=== PATIENT | female | born 1940 | race Caucasian/White ===

== ENCOUNTER 2023-04-03 11:44 | Inpatient (IN) | payer MEDICARE, MEDICAID ==
[2023-04-03 12:50] LABS: #Eosinphils 0.1 10x3/uL (0.0-0.5); #Monocytes 0.6 10x3/uL (0.0-1.1); #Neutrophils 6.2 10x3/uL (1.5-8.4); %Basophils 0.4 % (0.0-2.0); %Eosinophils 1.1 % (0.0-6.0); %Lymphocytes 14.5 % (18.0-47.0); %Monocytes 7.7 % (0.0-10.0); %Neutrophils 75.9 % (40.0-75.0); Hematocrit 27.1 % (34.9-44.5); Hemoglobin 7.9 g/dL (12.0-15.5); Mean Corpuscular HGB CONC 29.2 g/dL (32.0-36.0); Mean Corpuscular Hemoglobin 24.4 pg (27.0-33.0); Mean Corpuscular Volume 83.6 fl (81.6-98.3); Mean Platelet Volume 10.1 fl (7.4-10.4); Platelet Count 324 10x3/uL (150-450); RBC Distribution Width 15.8 % (11.5-14.5); Red Blood Cell (RBC) Count 3.24 10x6/uL (3.90-5.03); White Blood Cell (WBC) Count 8.1 10x3/uL (3.5-10.5)
[2023-04-03 13:03] LABS: ALT (SGPT) 12 U/L (8-55); AST (SGOT) 19 U/L (5-34); Albumin 3.9 g/dL (3.4-4.8); Alkaline Phosphatase 47 U/L (40-110); Anion Gap 17 mmol/L (10-20); BUN (Urea Nitrogen) 44 mg/dL (9.8-20.1); Bilirubin, Total 0.3 mg/dL (0.2-1.2); Calc. Creatinine Clearance 0 mL/min (70-130); Calcium 9.3 mg/dL (7.8-10.44); Carbon Dioxide 21 mmol/L (23-31); Chloride 107 mmol/L (98-107); Estimated GFR 28; Globulin 3.3 g/dL (2.4-3.5); Glucose 119 mg/dL (83-110); Potassium 4.7 mmol/L (3.5-5.1); Protein, Total 7.2 g/dL (5.8-8.1); Sodium 140 mmol/L (136-145)
[2023-04-03 13:58] LABS: INR-International Normal Ratio 0.9; PTT 23.9 sec (22.0-33.0); Troponin I Less than 0.010 ng/mL (< 0.028)
[2023-04-03 14:19] LABS: Bilirubin Neg (Negative); Blood, Urine Negative (Negative); Clarity Clear (Clear); Glucose, Urine (Dipstick) Normal (Negative); Ketone, Urine Negative (Negative); Leukocyte 500 (Negative); Nitrite Positive (Negative); Protein, Urine (Dipstick) Negative (Neg-Trace); Specific Gravity, Urine 1.015 (1.005-1.030); Urobilinogen Normal mg/dL (Less than 2)
[2023-04-03 14:40] LABS: Bacteria/HPF 4+ HPF (None Seen); CAUTI Indications for Culture Alt mental st,lethar; Mucous/LPF Rare LPF (<2+); RBC/HPF None Seen HPF (0-3); Squamous Epithelial 0-3 HPF (0-3); Urine Culture Reflex No No
[2023-04-03] MEDS ORDERED: Ondansetron ODT 4 MG TAB PO PRN (15:49)
[2023-04-03] MEDS ORDERED: Glucagon 1 MG/ML KIT IM PRN (15:49)
[2023-04-03] MEDS ORDERED: Dextrose 5% in Water 1,000 ML IV PRN (15:49)
[2023-04-03] MEDS ORDERED: Acetaminophen 650 MG Suppository PR PRN (15:49)
[2023-04-03] MEDS ORDERED: HumaLOG 300 UNITS/3 ML VIAL SC PRN ×2 (15:49)
[2023-04-03] MEDS ORDERED: Dextrose 50% Abboject 50 ML SYRINGE SLOW IVP PRN (15:49)
[2023-04-03] MEDS ORDERED: Ondansetron PF 4 MG/2 ML Vial IVP PRN (15:49)
[2023-04-03] MEDS ORDERED: cefTRIAXone (ROCEPHIN) 1 GM VIAL ONE (15:51)
[2023-04-03] MEDS ORDERED: Sodium Chloride 0.9% 500 ML IV SCH (16:00)
[2023-04-03] MEDS ORDERED: Ventolin HFA Inhaler 60 PUFF INHALER INH PRN (16:31)
[2023-04-03 16:33] LABS: Iron 28 ug/dL (50-170); Iron Binding Capacity, Total 439 mcg/dL (265-497); Magnesium 2.3 mg/dL (1.6-2.6)
[2023-04-03] MEDS: Pantoprazole 40 MG VIAL IVP SCH (21:00)
[2023-04-03 21:27] LABS: Hematocrit 28.3 % (34.9-44.5); Hemoglobin 8.6 g/dL (12.0-15.5)
[2023-04-03] MEDS ORDERED: FLU VACC QS2023(65UP)/MF59C/PF 60 MCG/0.5 ML SYRINGE IM ONE (22:45)
[2023-04-04 01:39] LABS: Bilirubin Neg (Negative); Blood, Urine Negative (Negative); Clarity Clear (Clear); Glucose, Urine (Dipstick) Normal (Negative); Ketone, Urine Negative (Negative); Leukocyte 500 (Negative); Nitrite Negative (Negative); Protein, Urine (Dipstick) Negative (Neg-Trace); Specific Gravity, Urine 1.015 (1.005-1.030); Urobilinogen Normal mg/dL (Less than 2)
[2023-04-04 01:48] LABS: Bacteria/HPF 1+ HPF (None Seen); CAUTI Indications for Culture Alt mental st,lethar; RBC/HPF None Seen HPF (0-3); Squamous Epithelial 0-3 HPF (0-3)
[2023-04-04 01:49] LABS: Urine Culture Reflex No No
[2023-04-04 08:00] LABS: #Eosinphils 0.2 10x3/uL (0.0-0.5); #Monocytes 0.5 10x3/uL (0.0-1.1); #Neutrophils 2.7 10x3/uL (1.5-8.4); %Basophils 0.6 % (0.0-2.0); %Eosinophils 3.1 % (0.0-6.0); %Lymphocytes 33.1 % (18.0-47.0); %Monocytes 9.7 % (0.0-10.0); %Neutrophils 53.1 % (40.0-75.0); Hematocrit 27.6 % (34.9-44.5); Hemoglobin 8.3 g/dL (12.0-15.5); Mean Corpuscular HGB CONC 30.1 g/dL (32.0-36.0); Mean Corpuscular Hemoglobin 25.2 pg (27.0-33.0); Mean Corpuscular Volume 83.9 fl (81.6-98.3); Platelet Count 261 10x3/uL (150-450); RBC Distribution Width 15.7 % (11.5-14.5); Red Blood Cell (RBC) Count 3.29 10x6/uL (3.90-5.03); White Blood Cell (WBC) Count 5.1 10x3/uL (3.5-10.5)
[2023-04-04 08:41] LABS: ALT (SGPT) 11 U/L (8-55); AST (SGOT) 20 U/L (5-34); Albumin 3.6 g/dL (3.4-4.8); Alkaline Phosphatase 47 U/L (40-110); Anion Gap 14 mmol/L (10-20); BUN (Urea Nitrogen) 40 mg/dL (9.8-20.1); Bilirubin, Total 0.4 mg/dL (0.2-1.2); Calc. Creatinine Clearance 47 mL/min (70-130); Carbon Dioxide 22 mmol/L (23-31); Chloride 110 mmol/L (98-107); Estimated GFR 33; Globulin 2.9 g/dL (2.4-3.5); Glucose 85 mg/dL (83-110); Potassium 4.4 mmol/L (3.5-5.1); Protein, Total 6.5 g/dL (5.8-8.1); Sodium 142 mmol/L (136-145)
[2023-04-04] MEDS ORDERED: FLU VACC QS2023(65UP)/MF59C/PF 60 MCG/0.5 ML SYRINGE IM ONE (09:00)
[2023-04-04] MEDS: Pantoprazole 40 MG VIAL IVP SCH ×2 (09:09→21:09)
[2023-04-04] MEDS: Iron, Sodium Ferric Gluconate 250 MG, Admixture Fee 1 EACH in Sodium Chloride 0.9% 250 ... IVPB SCH (14:22)
[2023-04-04] MEDS ORDERED: cefTRIAXone\\ROCEPHIN 1 GM in Sodium Chloride 0.9% 100 ML IVPB SCH ×2 (16:30→21:00)
[2023-04-04] MEDS: Lactated Ringer's 1,000 ML IV SCH (21:02)
[2023-04-04] MEDS: Sertraline 100 MG TAB PO SCH (21:12)
[2023-04-05] MEDS: Lactated Ringer's 1,000 ML IV SCH (00:20)
[2023-04-05] MEDS: Acetaminophen 325 MG TAB PO PRN ×3 (03:10→22:09)
[2023-04-05] MEDS: Levothyroxine Sodium 125 MCG TAB PO SCH (05:32)
[2023-04-05 06:34] LABS: #Eosinphils 0.2 10x3/uL (0.0-0.5); #Monocytes 0.7 10x3/uL (0.0-1.1); #Neutrophils 3.6 10x3/uL (1.5-8.4); %Basophils 0.5 % (0.0-2.0); %Eosinophils 3.3 % (0.0-6.0); %Monocytes 11.4 % (0.0-10.0); %Neutrophils 63.5 % (40.0-75.0); Hematocrit 25.5 % (34.9-44.5); Hemoglobin 7.8 g/dL (12.0-15.5); Mean Corpuscular HGB CONC 30.6 g/dL (32.0-36.0); Mean Corpuscular Hemoglobin 25.5 pg (27.0-33.0); Mean Corpuscular Volume 83.3 fl (81.6-98.3); Mean Platelet Volume 10.1 fl (7.4-10.4); Platelet Count 249 10x3/uL (150-450); RBC Distribution Width 15.9 % (11.5-14.5); Red Blood Cell (RBC) Count 3.06 10x6/uL (3.90-5.03); White Blood Cell (WBC) Count 5.7 10x3/uL (3.5-10.5)
[2023-04-05 06:37] LABS: Anion Gap 13 mmol/L (10-20); BUN (Urea Nitrogen) 34 mg/dL (9.8-20.1); Calc. Creatinine Clearance 52 mL/min (70-130); Calcium 8.7 mg/dL (7.8-10.44); Carbon Dioxide 23 mmol/L (23-31); Chloride 109 mmol/L (98-107); Estimated GFR 37; Glucose 101 mg/dL (83-110); Magnesium 2.3 mg/dL (1.6-2.6); Potassium 4.2 mmol/L (3.5-5.1); Sodium 141 mmol/L (136-145)
[2023-04-05] MEDS ORDERED: ROSUVASTATIN 5 MG PO SCH (09:00)
[2023-04-05] MEDS: Donepezil HCl 5 MG TAB PO SCH (10:04)
[2023-04-05] MEDS: Pantoprazole 40 MG VIAL IVP SCH ×2 (10:04→22:14)
[2023-04-05 13:53] LABS: Hemoglobin A1c 5.1 % (4.0-6.0)
[2023-04-05 14:07] LABS: Hematocrit 26.8 % (34.9-44.5); Hemoglobin 8.1 g/dL (12.0-15.5)
[2023-04-05] MEDS: Iron, Sodium Ferric Gluconate 250 MG, Admixture Fee 1 EACH in Sodium Chloride 0.9% 250 ... IVPB SCH (15:08)
[2023-04-05] MEDS: Cefdinir 300 MG CAP PO SCH (22:10)
[2023-04-05] MEDS: Sertraline 100 MG TAB PO SCH (22:10)
[2023-04-05] MEDS: Folic Acid 1 MG TAB PO SCH (22:11)
[2023-04-05] MEDS: Sacubitril 24MG/Valsartan 26 MG TAB PO SCH (22:12)
[2023-04-06 05:51] LABS: Anion Gap 12 mmol/L (10-20); BUN (Urea Nitrogen) 26 mg/dL (9.8-20.1); Calc. Creatinine Clearance 56 mL/min (70-130); Calcium 8.7 mg/dL (7.8-10.44); Carbon Dioxide 23 mmol/L (23-31); Chloride 110 mmol/L (98-107); Estimated GFR 40; Glucose 106 mg/dL (83-110); Potassium 3.8 mmol/L (3.5-5.1); Sodium 141 mmol/L (136-145)
[2023-04-06 06:00] LABS: #Eosinphils 0.2 10x3/uL (0.0-0.5); #Monocytes 0.8 10x3/uL (0.0-1.1); #Neutrophils 3.9 10x3/uL (1.5-8.4); %Basophils 0.5 % (0.0-2.0); %Eosinophils 3.1 % (0.0-6.0); %Lymphocytes 19.5 % (18.0-47.0); %Monocytes 13.5 % (0.0-10.0); %Neutrophils 63.1 % (40.0-75.0); Hematocrit 26.1 % (34.9-44.5); Hemoglobin 7.8 g/dL (12.0-15.5); Mean Corpuscular HGB CONC 29.9 g/dL (32.0-36.0); Mean Corpuscular Volume 83.7 fl (81.6-98.3); Mean Platelet Volume 9.3 fl (7.4-10.4); Platelet Count 234 10x3/uL (150-450); RBC Distribution Width 16.3 % (11.5-14.5); Red Blood Cell (RBC) Count 3.12 10x6/uL (3.90-5.03); White Blood Cell (WBC) Count 6.1 10x3/uL (3.5-10.5)
[2023-04-06] MEDS: Levothyroxine Sodium 125 MCG TAB PO SCH (06:54)
[2023-04-06] MEDS: Cyanocobalamin (Vitamin B-12) 1,000 MCG TAB PO SCH (08:57)
[2023-04-06] MEDS: Cefdinir 300 MG CAP PO SCH ×2 (08:57→21:37)
[2023-04-06] MEDS: Donepezil HCl 5 MG TAB PO SCH (08:57)
[2023-04-06] MEDS: Sacubitril 24MG/Valsartan 26 MG TAB PO SCH ×2 (08:58→21:37)
[2023-04-06] MEDS: Pantoprazole 40 MG VIAL IVP SCH ×2 (09:00→21:35)
[2023-04-06] MEDS: Acetaminophen 325 MG TAB PO PRN ×2 (09:57→20:10)
[2023-04-06] MEDS: Iron, Sodium Ferric Gluconate 250 MG, Admixture Fee 1 EACH in Sodium Chloride 0.9% 250 ... IVPB SCH (14:20)
[2023-04-06] MEDS ORDERED: GoLYTELY 4,000 ml Bottle PO SCH (18:00)
[2023-04-06] MEDS: Sertraline 100 MG TAB PO SCH (21:37)
[2023-04-06] MEDS: Folic Acid 1 MG TAB PO SCH (21:37)
[2023-04-07 05:42] LABS: #Monocytes 1.2 10x3/uL (0.0-1.1); #Neutrophils 7.1 10x3/uL (1.5-8.4); %Basophils 0.2 % (0.0-2.0); %Eosinophils 0.1 % (0.0-6.0); %Lymphocytes 11.6 % (18.0-47.0); %Monocytes 12.6 % (0.0-10.0); %Neutrophils 75.1 % (40.0-75.0); Hematocrit 25.7 % (34.9-44.5); Hemoglobin 7.7 g/dL (12.0-15.5); Mean Corpuscular Hemoglobin 25.3 pg (27.0-33.0); Mean Corpuscular Volume 84.5 fl (81.6-98.3); Mean Platelet Volume 9.5 fl (7.4-10.4); Platelet Count 237 10x3/uL (150-450); Red Blood Cell (RBC) Count 3.04 10x6/uL (3.90-5.03); White Blood Cell (WBC) Count 9.5 10x3/uL (3.5-10.5)
[2023-04-07 05:47] LABS: Anion Gap 15 mmol/L (10-20); BUN (Urea Nitrogen) 18 mg/dL (9.8-20.1); Calc. Creatinine Clearance 62 mL/min (70-130); Calcium 8.7 mg/dL (7.8-10.44); Carbon Dioxide 22 mmol/L (23-31); Chloride 108 mmol/L (98-107); Estimated GFR 44; Glucose 140 mg/dL (83-110); Potassium 4.3 mmol/L (3.5-5.1); Sodium 141 mmol/L (136-145)
[2023-04-07] MEDS: Levothyroxine Sodium 125 MCG TAB PO SCH (06:11)
[2023-04-07] MEDS: Colchicine 0.6 MG TAB PO SCH (10:01)
[2023-04-07] MEDS: Cyanocobalamin (Vitamin B-12) 1,000 MCG TAB PO SCH (10:02)
[2023-04-07] MEDS: Torsemide 20 MG TAB PO SCH (10:02)
[2023-04-07] MEDS: Cefdinir 300 MG CAP PO SCH (10:02)
[2023-04-07] MEDS: Donepezil HCl 5 MG TAB PO SCH (10:02)
[2023-04-07] MEDS: Pantoprazole 40 MG VIAL IVP SCH (10:03)
[2023-04-07] MEDS: Sacubitril 24MG/Valsartan 26 MG TAB PO SCH ×2 (10:03→21:26)
[2023-04-07] MEDS ORDERED: CeleCOXIB 100 MG CAP PO SCH (11:00)
[2023-04-07] MEDS ORDERED: cefTRIAXone\\ROCEPHIN 2 GM in Sodium Chloride 0.9% 100 ML IVPB SCH (11:00)
[2023-04-07] MEDS ORDERED: Nitroglycerin 0.4 MG TAB (25 Tab Bottle) SL PRN (11:02)
[2023-04-07] MEDS: Acetaminophen 325 MG TAB PO PRN ×2 (11:08→23:20)
[2023-04-07] MEDS ORDERED: Vancomycin 1 GM in Premix 1 BAG IVPB SCH (11:15)
[2023-04-07] MEDS: LevoFLOXacin 500 mg/D5W 500 MG in Premix 1 BAG IVPB SCH (11:20)
[2023-04-07] MEDS ORDERED: VANCOMYCIN 1.75 GM/350 ML BAG 1.75 GM in Premix 1 BAG IVPB SCH (11:30)
[2023-04-07] MEDS ORDERED: Colchicine 0.6 MG TAB PO SCH ×2 (11:30→12:30)
[2023-04-07 11:33] LABS: Troponin I Less than 0.010 ng/mL (< 0.028)
[2023-04-07] MEDS ORDERED: Torsemide 20 MG TAB PO SCH (14:00)
[2023-04-07] MEDS ORDERED: Lidocaine 1% PF 5 ML VIAL ONE (14:35)
[2023-04-07] MEDS ORDERED: PROPOFOL 40 ML ONE (14:35)
[2023-04-07] MEDS ORDERED: PHENYLEPHRINE-NS 100 MCG/ML 10 ML SYRINGE ONE (14:41)
[2023-04-07] MEDS: Potassium Chloride 20 MEQ TAB PO SCH (16:16)
[2023-04-07] MEDS: metFORMIN 500 MG TAB PO SCH (18:24)
[2023-04-07] MEDS: Iron, Sodium Ferric Gluconate 250 MG, Admixture Fee 1 EACH in Sodium Chloride 0.9% 250 ... IVPB SCH ×2 (18:49→21:26)
[2023-04-07] MEDS: Sertraline 100 MG TAB PO SCH (21:25)
[2023-04-07] MEDS: Folic Acid 1 MG TAB PO SCH (21:26)
[2023-04-07 22:25] LABS: Bilirubin Neg (Negative); Blood, Urine Negative (Negative); Clarity Clear (Clear); Glucose, Urine (Dipstick) Normal (Negative); Ketone, Urine Negative (Negative); Leukocyte Negative (Negative); Nitrite Negative (Negative); Protein, Urine (Dipstick) Negative (Neg-Trace); Specific Gravity, Urine 1.015 (1.005-1.030); Urobilinogen Normal mg/dL (Less than 2)
[2023-04-07 22:42] LABS: Bacteria/HPF None Seen HPF (None Seen); RBC/HPF None Seen HPF (0-3); Squamous Epithelial 0-3 HPF (0-3); WBC/HPF 0-3 HPF (0-3)
[2023-04-08] MEDS: Acetaminophen 325 MG TAB PO PRN (03:50)
[2023-04-08 03:53] LABS: #Eosinphils 0.1 10x3/uL (0.0-0.5); #Monocytes 0.7 10x3/uL (0.0-1.1); #Neutrophils 6.4 10x3/uL (1.5-8.4); %Basophils 0.1 % (0.0-2.0); %Eosinophils 0.9 % (0.0-6.0); %Lymphocytes 11.6 % (18.0-47.0); %Monocytes 8.4 % (0.0-10.0); %Neutrophils 78.6 % (40.0-75.0); Hematocrit 23.4 % (34.9-44.5); Hemoglobin 7.2 g/dL (12.0-15.5); Mean Corpuscular HGB CONC 30.8 g/dL (32.0-36.0); Mean Corpuscular Hemoglobin 25.8 pg (27.0-33.0); Mean Corpuscular Volume 83.9 fl (81.6-98.3); Mean Platelet Volume 10.2 fl (7.4-10.4); Platelet Count 219 10x3/uL (150-450); RBC Distribution Width 17.4 % (11.5-14.5); Red Blood Cell (RBC) Count 2.79 10x6/uL (3.90-5.03); White Blood Cell (WBC) Count 8.1 10x3/uL (3.5-10.5)
[2023-04-08 04:03] LABS: Anion Gap 13 mmol/L (10-20); BUN (Urea Nitrogen) 20 mg/dL (9.8-20.1); Calc. Creatinine Clearance 61 mL/min (70-130); Calcium 8.4 mg/dL (7.8-10.44); Carbon Dioxide 20 mmol/L (23-31); Chloride 108 mmol/L (98-107); Estimated GFR 43; Glucose 147 mg/dL (83-110); Potassium 3.6 mmol/L (3.5-5.1); Sodium 137 mmol/L (136-145)
[2023-04-08] MEDS: Levothyroxine Sodium 125 MCG TAB PO SCH (05:56)
[2023-04-08] MEDS ORDERED: Iron, Sodium Ferric Gluconate 250 MG in Sodium Chloride 0.9% 250 ML 250 ML IVPB SCH (08:00)
[2023-04-08] MEDS: Cyanocobalamin (Vitamin B-12) 1,000 MCG TAB PO SCH (08:11)
[2023-04-08] MEDS: metFORMIN 500 MG TAB PO SCH ×2 (08:11→16:14)
[2023-04-08] MEDS: Torsemide 20 MG TAB PO SCH (08:11)
[2023-04-08] MEDS: Sacubitril 24MG/Valsartan 26 MG TAB PO SCH ×2 (08:11→21:45)
[2023-04-08] MEDS: Colchicine 0.6 MG TAB PO SCH (08:11)
[2023-04-08] MEDS: Multivit, Therapeutic 1 TAB PO SCH (08:12)
[2023-04-08] MEDS: Aspirin 81 mg Enteric Coated Tablet PO SCH (08:22)
[2023-04-08] MEDS ORDERED: Prasugrel 10 MG TAB PO SCH ×2 (09:00)
[2023-04-08] MEDS ORDERED: Aspirin 81 mg Enteric Coated Tablet PO SCH (09:00)
[2023-04-08] MEDS: LevoFLOXacin 500 mg/D5W 500 MG in Premix 1 BAG IVPB SCH (12:27)
[2023-04-08 13:35] LABS: Hematocrit 28.3 % (34.9-44.5); Hemoglobin 8.3 g/dL (12.0-15.5); Platelet Count 249 10x3/uL (150-450)
[2023-04-08] MEDS: Potassium Chloride 20 MEQ TAB PO SCH (14:00)
[2023-04-08] MEDS ORDERED: VANCOMYCIN 1.25 GM/250 ML BAG 1.25 GM in Premix 1 BAG IVPB SCH (16:00)
[2023-04-08] MEDS: Sertraline 100 MG TAB PO SCH (21:43)
[2023-04-08] MEDS: Folic Acid 1 MG TAB PO SCH (21:45)
[2023-04-09 03:39] LABS: #Eosinphils 0.2 10x3/uL (0.0-0.5); #Monocytes 0.7 10x3/uL (0.0-1.1); #Neutrophils 4.2 10x3/uL (1.5-8.4); %Basophils 0.3 % (0.0-2.0); %Eosinophils 2.7 % (0.0-6.0); %Lymphocytes 17.9 % (18.0-47.0); %Monocytes 10.5 % (0.0-10.0); %Neutrophils 68.3 % (40.0-75.0); Hematocrit 24.2 % (34.9-44.5); Hemoglobin 7.3 g/dL (12.0-15.5); Mean Corpuscular HGB CONC 30.2 g/dL (32.0-36.0); Mean Corpuscular Hemoglobin 25.1 pg (27.0-33.0); Mean Corpuscular Volume 83.2 fl (81.6-98.3); Mean Platelet Volume 9.9 fl (7.4-10.4); Platelet Count 235 10x3/uL (150-450); RBC Distribution Width 17.6 % (11.5-14.5); Red Blood Cell (RBC) Count 2.91 10x6/uL (3.90-5.03); White Blood Cell (WBC) Count 6.2 10x3/uL (3.5-10.5)
[2023-04-09 04:11] LABS: Anion Gap 13 mmol/L (10-20); BUN (Urea Nitrogen) 21 mg/dL (9.8-20.1); Calc. Creatinine Clearance 60 mL/min (70-130); Calcium 8.6 mg/dL (7.8-10.44); Carbon Dioxide 20 mmol/L (23-31); Chloride 110 mmol/L (98-107); Estimated GFR 43; Glucose 115 mg/dL (83-110); Sodium 139 mmol/L (136-145)
[2023-04-09] MEDS: Levothyroxine Sodium 125 MCG TAB PO SCH (05:36)
[2023-04-09] MEDS ORDERED: Artificial Tear Sol 15 ML BOT EA EYE PRN (08:39)
[2023-04-09] MEDS: LevoFLOXacin 500 mg/D5W 500 MG in Premix 1 BAG IVPB SCH (11:58)
[2023-04-09] MEDS: Acetaminophen 325 MG TAB PO PRN (12:11)
[2023-04-09] MEDS: Prasugrel 10 MG TAB PO SCH (12:11)
[2023-04-09] MEDS: Cyanocobalamin (Vitamin B-12) 1,000 MCG TAB PO SCH (12:12)
[2023-04-09] MEDS: Sacubitril 24MG/Valsartan 26 MG TAB PO SCH ×2 (12:12→21:39)
[2023-04-09] MEDS: metFORMIN 500 MG TAB PO SCH ×2 (12:12→17:38)
[2023-04-09] MEDS: Colchicine 0.6 MG TAB PO SCH (12:13)
[2023-04-09] MEDS: Multivit, Therapeutic 1 TAB PO SCH (12:13)
[2023-04-09] MEDS: Aspirin 81 mg Enteric Coated Tablet PO SCH (12:13)
[2023-04-09] MEDS: Potassium Chloride 20 MEQ TAB PO SCH (12:14)
[2023-04-09] MEDS: Torsemide 20 MG TAB PO SCH (12:22)
[2023-04-09] MEDS: Folic Acid 1 MG TAB PO SCH (21:39)
[2023-04-09] MEDS: Sertraline 100 MG TAB PO SCH (21:39)
[2023-04-10 04:17] LABS: Hematocrit 29.8 % (34.9-44.5); Hemoglobin 9.3 g/dL (12.0-15.5)
[2023-04-10] MEDS: Levothyroxine Sodium 125 MCG TAB PO SCH (05:46)
[2023-04-10] MEDS: Colchicine 0.6 MG TAB PO SCH (08:21)
[2023-04-10] MEDS: Prasugrel 10 MG TAB PO SCH (08:21)
[2023-04-10] MEDS: Cyanocobalamin (Vitamin B-12) 1,000 MCG TAB PO SCH (08:22)
[2023-04-10] MEDS: Sacubitril 24MG/Valsartan 26 MG TAB PO SCH ×2 (08:22→21:14)
[2023-04-10] MEDS: Multivit, Therapeutic 1 TAB PO SCH (08:22)
[2023-04-10] MEDS: Torsemide 20 MG TAB PO SCH ×2 (08:22→13:16)
[2023-04-10] MEDS: Aspirin 81 mg Enteric Coated Tablet PO SCH (08:22)
[2023-04-10] MEDS: metFORMIN 500 MG TAB PO SCH ×2 (08:22→16:31)
[2023-04-10] MEDS: LevoFLOXacin 500 mg/D5W 500 MG in Premix 1 BAG IVPB SCH (10:33)
[2023-04-10] MEDS: Potassium Chloride 20 MEQ TAB PO SCH (13:16)
[2023-04-10] MEDS: Folic Acid 1 MG TAB PO SCH (21:12)
[2023-04-10] MEDS: Sertraline 100 MG TAB PO SCH (21:13)
[2023-04-11] MEDS: Levothyroxine Sodium 125 MCG TAB PO SCH (07:10)
[2023-04-11] MEDS: Sacubitril 24MG/Valsartan 26 MG TAB PO SCH ×2 (08:39→20:47)
[2023-04-11] MEDS: Prasugrel 10 MG TAB PO SCH (08:39)
[2023-04-11] MEDS: metFORMIN 500 MG TAB PO SCH ×2 (08:39→17:00)
[2023-04-11] MEDS: Cyanocobalamin (Vitamin B-12) 1,000 MCG TAB PO SCH (08:39)
[2023-04-11] MEDS: Colchicine 0.6 MG TAB PO SCH (08:39)
[2023-04-11] MEDS: Torsemide 20 MG TAB PO SCH (08:39)
[2023-04-11] MEDS: Aspirin 81 mg Enteric Coated Tablet PO SCH (08:39)
[2023-04-11] MEDS: Multivit, Therapeutic 1 TAB PO SCH (08:40)
[2023-04-11] MEDS ORDERED: hydrALAZINE 25 MG TAB PO PRN (09:38)
[2023-04-11] MEDS: Potassium Chloride 20 MEQ TAB PO SCH (13:43)
[2023-04-11] MEDS: Sertraline 100 MG TAB PO SCH (20:47)
[2023-04-11] MEDS: Saccharomyces boulardii 250 MG CAP PO SCH (20:47)
[2023-04-11] MEDS: Folic Acid 1 MG TAB PO SCH (20:47)
[2023-04-11] MEDS: Nystatin Powder 15 GM BOT TOP SCH (22:39)
[2023-04-12 04:34] LABS: Anion Gap 16 mmol/L (10-20); BUN (Urea Nitrogen) 39 mg/dL (9.8-20.1); Calc. Creatinine Clearance 48 mL/min (70-130); Calcium 9.2 mg/dL (7.8-10.44); Carbon Dioxide 20 mmol/L (23-31); Chloride 103 mmol/L (98-107); Estimated GFR 32; Glucose 111 mg/dL (83-110); Sodium 135 mmol/L (136-145)
[2023-04-12 04:42] LABS: Hematocrit 32.2 % (34.9-44.5); Hemoglobin 9.7 g/dL (12.0-15.5); Mean Corpuscular HGB CONC 30.1 g/dL (32.0-36.0); Mean Corpuscular Hemoglobin 25.1 pg (27.0-33.0); Mean Corpuscular Volume 83.2 fl (81.6-98.3); Mean Platelet Volume 9.1 fl (7.4-10.4); Platelet Count 285 10x3/uL (150-450); RBC Distribution Width 17.7 % (11.5-14.5); Red Blood Cell (RBC) Count 3.87 10x6/uL (3.90-5.03); White Blood Cell (WBC) Count 5.8 10x3/uL (3.5-10.5)
[2023-04-12 05:24] LABS: MDiff Complete? YES
[2023-04-12] MEDS: Levothyroxine Sodium 125 MCG TAB PO SCH (05:46)
[2023-04-12 05:58] LABS: Eosinophils 3 % (0-10); Lymphocytes 24 % (21-51); Monocytes 5 % (0-10); Neutrophil 68 % (42-75)
[2023-04-12 06:01] LABS: Hypochromia SLIGHT = 6-15 cells (100X) (0-5/hpf); Microcytosis SLIGHT = 6-15 cells (100X) (0-5/hpf); Ovalocytes SLIGHT = 2-5 cells (100X) (0-1/hpf); Platelet Adequacy Comment Appears Adequate
[2023-04-12] MEDS: Cyanocobalamin (Vitamin B-12) 1,000 MCG TAB PO SCH (09:27)
[2023-04-12] MEDS: Colchicine 0.6 MG TAB PO SCH (09:29)
[2023-04-12] MEDS: Sacubitril 24MG/Valsartan 26 MG TAB PO SCH ×2 (09:29→21:37)
[2023-04-12] MEDS: metFORMIN 500 MG TAB PO SCH ×2 (09:29→17:51)
[2023-04-12] MEDS: Aspirin 81 mg Enteric Coated Tablet PO SCH (09:30)
[2023-04-12] MEDS: Multivit, Therapeutic 1 TAB PO SCH (09:30)
[2023-04-12] MEDS: Torsemide 20 MG TAB PO SCH (09:31)
[2023-04-12] MEDS: Nystatin Powder 15 GM BOT TOP SCH ×2 (09:32→21:38)
[2023-04-12] MEDS: Prasugrel 10 MG TAB PO SCH (09:33)
[2023-04-12] MEDS: Potassium Chloride 20 MEQ TAB PO SCH (13:58)
[2023-04-12] MEDS: Sertraline 100 MG TAB PO SCH (21:37)
[2023-04-12] MEDS: Folic Acid 1 MG TAB PO SCH (21:38)
[2023-04-12] MEDS: Saccharomyces boulardii 250 MG CAP PO SCH (21:38)
[2023-04-13] MEDS: Levothyroxine Sodium 125 MCG TAB PO SCH (05:36)
[2023-04-13] MEDS: Colchicine 0.6 MG TAB PO SCH (09:42)
[2023-04-13] MEDS: metFORMIN 500 MG TAB PO SCH ×2 (09:43→17:12)
[2023-04-13] MEDS: Sacubitril 24MG/Valsartan 26 MG TAB PO SCH ×2 (09:43→20:43)
[2023-04-13] MEDS: Multivit, Therapeutic 1 TAB PO SCH (09:43)
[2023-04-13] MEDS: Prasugrel 10 MG TAB PO SCH (09:43)
[2023-04-13] MEDS: Cyanocobalamin (Vitamin B-12) 1,000 MCG TAB PO SCH (09:43)
[2023-04-13] MEDS: Aspirin 81 mg Enteric Coated Tablet PO SCH (09:43)
[2023-04-13] MEDS: Torsemide 20 MG TAB PO SCH (09:54)
[2023-04-13] MEDS: Nystatin Powder 15 GM BOT TOP SCH ×2 (09:56→20:47)
[2023-04-13] MEDS: Potassium Chloride 20 MEQ TAB PO SCH (14:19)
[2023-04-13] MEDS: Saccharomyces boulardii 250 MG CAP PO SCH (20:43)
[2023-04-13] MEDS: Sertraline 100 MG TAB PO SCH (20:43)
[2023-04-13] MEDS: Folic Acid 1 MG TAB PO SCH (20:43)
[2023-04-14 05:49] VITALS: BMI 45.0
[2023-04-14] MEDS: Levothyroxine Sodium 125 MCG TAB PO SCH (05:50)
[2023-04-14] MEDS: Prasugrel 10 MG TAB PO SCH (08:27)
[2023-04-14] MEDS: Torsemide 20 MG TAB PO SCH (08:27)
[2023-04-14] MEDS: metFORMIN 500 MG TAB PO SCH ×2 (08:27→16:31)
[2023-04-14] MEDS: Multivit, Therapeutic 1 TAB PO SCH (08:27)
[2023-04-14] MEDS: Sacubitril 24MG/Valsartan 26 MG TAB PO SCH ×2 (08:28→21:39)
[2023-04-14] MEDS: Nystatin Powder 15 GM BOT TOP SCH ×2 (08:28→21:40)
[2023-04-14] MEDS: Aspirin 81 mg Enteric Coated Tablet PO SCH (08:28)
[2023-04-14] MEDS: Colchicine 0.6 MG TAB PO SCH (08:28)
[2023-04-14] MEDS: Cyanocobalamin (Vitamin B-12) 1,000 MCG TAB PO SCH (08:28)
[2023-04-14] MEDS: Potassium Chloride 20 MEQ TAB PO SCH (13:47)
[2023-04-14] MEDS: Folic Acid 1 MG TAB PO SCH (21:39)
[2023-04-14] MEDS: Saccharomyces boulardii 250 MG CAP PO SCH (21:39)
[2023-04-14] MEDS: Sertraline 100 MG TAB PO SCH (21:39)
[2023-04-15] MEDS: Levothyroxine Sodium 125 MCG TAB PO SCH (05:29)
[2023-04-15] MEDS: metFORMIN 500 MG TAB PO SCH ×2 (08:14→16:50)
[2023-04-15] MEDS: Nystatin Powder 15 GM BOT TOP SCH ×2 (08:14→21:44)
[2023-04-15] MEDS: Sacubitril 24MG/Valsartan 26 MG TAB PO SCH ×2 (08:14→21:12)
[2023-04-15] MEDS: Colchicine 0.6 MG TAB PO SCH (08:14)
[2023-04-15] MEDS: Aspirin 81 mg Enteric Coated Tablet PO SCH (08:14)
[2023-04-15] MEDS: Cyanocobalamin (Vitamin B-12) 1,000 MCG TAB PO SCH (08:14)
[2023-04-15] MEDS: Prasugrel 10 MG TAB PO SCH (08:14)
[2023-04-15] MEDS: Multivit, Therapeutic 1 TAB PO SCH (08:14)
[2023-04-15] MEDS: Torsemide 20 MG TAB PO SCH (08:15)
[2023-04-15] MEDS: Potassium Chloride 20 MEQ TAB PO SCH (13:06)
[2023-04-15] MEDS: Sertraline 100 MG TAB PO SCH (21:11)
[2023-04-15] MEDS: Saccharomyces boulardii 250 MG CAP PO SCH (21:12)
[2023-04-15] MEDS: Folic Acid 1 MG TAB PO SCH (21:12)
[2023-04-16 05:07] LABS: #Basophils 0.1 10x3/uL (0.0-0.2); #Eosinphils 0.2 10x3/uL (0.0-0.5); #Monocytes 0.7 10x3/uL (0.0-1.1); #Neutrophils 2.5 10x3/uL (1.5-8.4); %Eosinophils 4.8 % (0.0-6.0); %Lymphocytes 27.6 % (18.0-47.0); %Neutrophils 51.6 % (40.0-75.0); Hematocrit 34.3 % (34.9-44.5); Hemoglobin 10.4 g/dL (12.0-15.5); Mean Corpuscular HGB CONC 30.3 g/dL (32.0-36.0); Mean Corpuscular Hemoglobin 25.6 pg (27.0-33.0); Mean Corpuscular Volume 84.3 fl (81.6-98.3); Mean Platelet Volume 9.5 fl (7.4-10.4); Platelet Count 324 10x3/uL (150-450); RBC Distribution Width 17.6 % (11.5-14.5); Red Blood Cell (RBC) Count 4.07 10x6/uL (3.90-5.03); White Blood Cell (WBC) Count 4.8 10x3/uL (3.5-10.5)
[2023-04-16 05:29] LABS: Anion Gap 17 mmol/L (10-20); BUN (Urea Nitrogen) 73 mg/dL (9.8-20.1); Calc. Creatinine Clearance 45 mL/min (70-130); Calcium 8.9 mg/dL (7.8-10.44); Carbon Dioxide 20 mmol/L (23-31); Chloride 106 mmol/L (98-107); Estimated GFR 30; Glucose 126 mg/dL (83-110); Potassium 4.2 mmol/L (3.5-5.1); Sodium 139 mmol/L (136-145)
[2023-04-16] MEDS: Levothyroxine Sodium 125 MCG TAB PO SCH (05:37)
[2023-04-16] MEDS: Aspirin 81 mg Enteric Coated Tablet PO SCH (09:10)
[2023-04-16] MEDS: Prasugrel 10 MG TAB PO SCH (09:10)
[2023-04-16] MEDS: Cyanocobalamin (Vitamin B-12) 1,000 MCG TAB PO SCH (09:10)
[2023-04-16] MEDS: Colchicine 0.6 MG TAB PO SCH (09:10)
[2023-04-16] MEDS: Sacubitril 24MG/Valsartan 26 MG TAB PO SCH (09:10)
[2023-04-16] MEDS: metFORMIN 500 MG TAB PO SCH (09:11)
[2023-04-16] MEDS: Multivit, Therapeutic 1 TAB PO SCH (09:11)
[2023-04-16] MEDS: Torsemide 20 MG TAB PO SCH (09:12)
[2023-04-16] MEDS: Nystatin Powder 15 GM BOT TOP SCH (09:13)
[2023-04-16 09:18] VITALS: TEMP 98.6
[2023-04-16 13:12] VITALS: BP 129/60
== END 2023-04-16 14:30 | disposition home health service (06) | DRG 378 ==
LOC: CSHERS 11:44 → CSHERHOLD 15:01 → CSHTELE 20:08 → OBSVTOIN 04-05 13:01
PROVIDERS: ADMIT Internal Medicine; ATTEND Hospitalist
PROC: 30233N1 Transfusion of Nonautologous Red Blood Cells into Peripheral Vein, Percutaneous Approach (ICD-10-PCS; 2023-04-03)
PROC: 0DB98ZX Excision of Duodenum, Via Natural or Artificial Opening Endoscopic, Diagnostic (ICD-10-PCS; principal; 2023-04-07)
PROC: 0DBH8ZZ Excision of Cecum, Via Natural or Artificial Opening Endoscopic (ICD-10-PCS; 2023-04-07)
DX: K92.2 Gastrointestinal hemorrhage, unspecified (principal); F03.94 Unspecified dementia, unspecified severity, with anxiety; I13.0 Hypertensive heart and chronic kidney disease with heart failure and stage 1 through stage 4 chronic kidney disease, or unspecified chronic kidney disease; N30.00 Acute cystitis without hematuria; N17.9 Acute kidney failure, unspecified; Z68.42 Body mass index [BMI] 45.0-49.9, adult; D50.9 Iron deficiency anemia, unspecified; R53.1 Weakness; D12.0 Benign neoplasm of cecum; E11.22 Type 2 diabetes mellitus with diabetic chronic kidney disease; K21.9 Gastro-esophageal reflux disease without esophagitis; D63.1 Anemia in chronic kidney disease; I50.9 Heart failure, unspecified; G47.33 Obstructive sleep apnea (adult) (pediatric); F32.A Depression, unspecified; M10.9 Gout, unspecified; J44.9 Chronic obstructive pulmonary disease, unspecified; I25.10 Atherosclerotic heart disease of native coronary artery without angina pectoris; E11.40 Type 2 diabetes mellitus with diabetic neuropathy, unspecified; E03.9 Hypothyroidism, unspecified; N18.30 Chronic kidney disease, stage 3 unspecified; F39 Unspecified mood [affective] disorder; R50.9 Fever, unspecified; E66.01 Morbid (severe) obesity due to excess calories; Z79.82 Long term (current) use of aspirin; Z79.890 Hormone replacement therapy; Z79.899 Other long term (current) drug therapy; Z98.890 Other specified postprocedural states; Z90.710 Acquired absence of both cervix and uterus; Z95.2 Presence of prosthetic heart valve; Z95.818 Presence of other cardiac implants and grafts; Z82.49 Family history of ischemic heart disease and other diseases of the circulatory system; Z80.8 Family history of malignant neoplasm of other organs or systems; Z87.891 Personal history of nicotine dependence; E78.00 Pure hypercholesterolemia, unspecified
CPT/HCPCS: 36415; 36416; 36430; 71045; 76770; 78451; 80048; 80053; 81001; 82274; 82607; 82728; 83036; 83540; 83550; 83735; 83880; 84145; 84443; 84484; 85014; 85018; 85025; 85046; 85379; 85610; 85730; 86850; 86900; 86901; 87040; 87086; 87633; 88305; 93005; 93010; 93306; 93970; 94760; 94762; 96374; 96375; 96376; A9540; C9113; G0378; J0696; J1956; J2704; J2916; J3370; J3490; J7050; J7120; P9016

== ENCOUNTER 2023-05-01 10:40 | Emergency (ER) | payer MEDICARE, MEDICAID ==
[2023-05-01 11:38] LABS: #Eosinphils 0.1 10x3/uL (0.0-0.5); #Monocytes 0.9 10x3/uL (0.0-1.1); #Neutrophils 7.3 10x3/uL (1.5-8.4); %Basophils 0.2 % (0.0-2.0); %Eosinophils 0.7 % (0.0-6.0); %Lymphocytes 9.5 % (18.0-47.0); %Monocytes 10.2 % (0.0-10.0); %Neutrophils 79.2 % (40.0-75.0); Hematocrit 33.6 % (34.9-44.5); Hemoglobin 10.4 g/dL (12.0-15.5); Mean Corpuscular Hemoglobin 26.8 pg (27.0-33.0); Mean Corpuscular Volume 86.6 fl (81.6-98.3); Mean Platelet Volume 10.4 fl (7.4-10.4); Platelet Count 192 10x3/uL (150-450); RBC Distribution Width 19.6 % (11.5-14.5); Red Blood Cell (RBC) Count 3.88 10x6/uL (3.90-5.03); White Blood Cell (WBC) Count 9.2 10x3/uL (3.5-10.5)
[2023-05-01 11:59] LABS: SARS-CoV-2 NAA Rapid Test Not Detected (NotDetected)
[2023-05-01 12:08] LABS: Troponin I Less than 0.010 ng/mL (< 0.028)
[2023-05-01 12:09] LABS: ALT (SGPT) 11 U/L (8-55); AST (SGOT) 18 U/L (5-34); Albumin 3.9 g/dL (3.4-4.8); Alkaline Phosphatase 65 U/L (40-110); Anion Gap 17 mmol/L (10-20); BUN (Urea Nitrogen) 27 mg/dL (9.8-20.1); Bilirubin, Total 0.5 mg/dL (0.2-1.2); Calc. Creatinine Clearance 0 mL/min (70-130); Calcium 8.8 mg/dL (7.8-10.44); Carbon Dioxide 21 mmol/L (23-31); Chloride 106 mmol/L (98-107); Estimated GFR 34; Globulin 3.2 g/dL (2.4-3.5); Glucose 128 mg/dL (83-110); Protein, Total 7.1 g/dL (5.8-8.1); Sodium 140 mmol/L (136-145)
== END 2023-05-01 13:55 | disposition home or self-care (01) ==
LOC: CSHERS 10:40
DX: R07.9 Chest pain, unspecified (principal); E11.9 Type 2 diabetes mellitus without complications; J44.9 Chronic obstructive pulmonary disease, unspecified; I10 Essential (primary) hypertension; Z20.822 Contact with and (suspected) exposure to COVID-19
CPT/HCPCS: 0240U; 71045; 80053; 84484; 85025; 93005